=== PATIENT | female | born 1955 ===

== ENCOUNTER 2020-06-27 21:59 | Outpatient (CLI) | payer MEDICARE | END 2020-06-27 22:00 | disposition short-term general hospital (02) | LOC: EMS 21:59 | PROVIDERS: ATTEND Surgery | DX: F41.9 Anxiety disorder, unspecified (principal) | CPT/HCPCS: A0425; A0429 ==

== ENCOUNTER 2021-02-10 19:47 | Outpatient (CLI) | payer MEDICARE | END 2021-02-10 19:48 | disposition short-term general hospital (02) | LOC: EMS 19:47 | DX: Z71.1 Person with feared health complaint in whom no diagnosis is made (principal) | CPT/HCPCS: A0425; A0429 ==